=== PATIENT | female | born 1965 | race Caucasian/White ===

== ENCOUNTER → 2016-09-28 | Outpatient (REF) | payer BC, OTHER | LOC: M LAB REF 12:54 | PROVIDERS: ATTEND Nurse Practitioner Adult Health | DX: D64.9 Anemia, unspecified (principal) ==

== ENCOUNTER → 2016-10-20 | Outpatient (REF) | payer BC, OTHER | LOC: M LAB REF 13:25 | PROVIDERS: ATTEND Physician Assistant | DX: R30.0 Dysuria (principal) ==

== ENCOUNTER → 2016-11-02 | Outpatient (REF) | payer BC | LOC: M LAB REF 17:17 | PROVIDERS: ATTEND Specialist | DX: R30.0 Dysuria (principal) ==

== ENCOUNTER 2016-12-20 09:51 | Day surgery (SDC) | payer BC ==
[~2016-12-20] VITALS: Ht 162.6 cm; Wt 72.6 kg
[~2016-12-20 09:51] MED LIST: ACYC200C8 PO; CITA20TA4 PO; FLUTISP; IRON65TA PO; L-LY500C2 PO; MULT1TAB10 PO; NAPR500T3 PO; VITA-115 PO; VITA100T20 PO
[2016-12-20] MEDS ORDERED: LR 1,000 ML IV ONE (10:15)
[2016-12-20] MEDS ORDERED: ceFAZolin SOD 1 GM in D5W MINI-BAG PLUS 50 ML IV ONE (10:15)
[2016-12-20] MEDS ORDERED: TYLE325C PO (10:27)
[2016-12-20] MEDS ORDERED: MIDAZOLAM INJ 2 MG/2 ML VIAL (J2250) As Ordered ONE (11:01)
[2016-12-20] MEDS ORDERED: ONDANSETRON 4MG/2ML VIAL (J2405) As Ordered ONE (11:02)
[2016-12-20] MEDS ORDERED: LIDOCAINE 2% INJ 100 MG/5 ML SDV (FOR ANES.) As Ordered ONE (11:02)
[2016-12-20] MEDS ORDERED: PROPOFOL 200 MG/20 ML VIAL As Ordered ONE (11:02)
[2016-12-20] MEDS ORDERED: fentaNYL 100 MCG/2 ML INJECTION (J3010) As Ordered ONE (11:02)
[2016-12-20] MEDS ORDERED: dexameTHASONE 4 MG/ML 1ML VIAL (J1100) As Ordered ONE (11:02)
[2016-12-20] MEDS ORDERED: KETOROLAC 60 MG/2 ML VIAL (J1885) As Ordered ONE (11:42)
[2016-12-20] MEDS ORDERED: HYDROmorphone HCL 1 MG/ML SYRINGE (J1170) IV PRN (12:30)
[2016-12-20] MEDS ORDERED: METOCLOPRAMIDE INJ 10MG/2ML VIAL (J2765) IV PRN (12:30)
[2016-12-20] MEDS ORDERED: ONDANSETRON 4MG/2ML VIAL (J2405) IV PRN (12:30)
[2016-12-20] MEDS ORDERED: fentaNYL 100 MCG/2 ML INJECTION (J3010) IV PRN (12:30)
[2016-12-20] MEDS ORDERED: LR 1,000 ML IV SCH ×2 (12:30)
[2016-12-20] MEDS ORDERED: PERCOCET 5MG/325MG TAB PO PRN ×3 (12:30)
[2016-12-20 15:00] VITALS: BP 125/79
--- NOTE | 2016-12-21 07:28 | RO ---
DATE OF PROCEDURE: 12/20/2016 PREPROCEDURE DIAGNOSES: Menorrhagia, vulvar lesions. POSTPROCEDURE DIAGNOSES: Menorrhagia, vulvar lesions. PROCEDURE: Hysteroscopy, D and C, NovaSure endometrial ablation. Excision of vulvar lesions. SURGEON: Dr. Michelet Franklin. VICE CHAIRMAN: ANESTHESIA: General endotracheal. ESTIMATED BLOOD LOSS: Minimal. FINDINGS: Normal uterus, normal appearing endometrial cavity with normal tubal ostia bilaterally. Multiple small firm nodular lesions on the labia majora consistent with possible molluscum contagiosum. OPERATIVE SUMMARY: The patient was taken to the operating room where general endotracheal anesthesia was induced. She was prepped and draped in a sterile fashion in dorsal lithotomy position. Bladder was emptied with a catheter. 200 mL of urine was obtained. Speculum was placed. The anterior lip of the cervix was grasped with a tenaculum. An endocervical polyp was removed by grasping it with polyp forceps and twisting it off at its base. Cervix was dilated with tapered dilators. Diagnostic hysteroscope using normal saline was extended medially and placed through the internal os. Visualization of the endometrial cavity revealed the findings noted above. Sharp curettage was performed. NovaSure device was assembled. The device was inserted through the internal os. Endometrial cavity length was 4 cm. Cavity width was calculated at 4.6 cm. Total power setting was 101 hurst. Successful cavity assessment was performed. Coagulation was initiated. Total coagulation time was 120 seconds. NovaSure device was removed. Hysteroscopy was performed. Excellent coagulation affect was noted throughout the endometrium with sparing of the cervix. Hysteroscope was removed. Speculum was removed. Multiple nodular lesions of the vulva were identified. Small pickups with tissue forceps was used to grasp. The lesions were excised with a scalpel. A total of eight lesions were excised bilaterally. The lesions were sent to pathology. There were no further lesions identified that were amenable to being removed. Sponge and instrument counts were correct. The patient went to the recovery room in stable condition.
== END 2016-12-20 15:15 | disposition home or self-care (01) ==
LOC: M SDC 09:51
PROVIDERS: ATTEND Specialist
DX: N92.0 Excessive and frequent menstruation with regular cycle (principal); N90.7 Vulvar cyst; N84.0 Polyp of corpus uteri; Z88.2 Allergy status to sulfonamides; Z79.899 Other long term (current) drug therapy; D64.9 Anemia, unspecified; Z87.891 Personal history of nicotine dependence; F41.9 Anxiety disorder, unspecified
CPT/HCPCS: 11420; 36415; 58563; 85014; 85018; 88304; 88305; A4649; J0690; J1100; J1885; J2250; J2405; J3010

== ENCOUNTER → 2017-11-15 | Outpatient (REF) | payer BC ==
[2017-11-15 12:31] LABS: IRON (FE) 85 UG/DL (50-170)
== END ==
LOC: M LAB REF 12:05
DX: D64.9 Anemia, unspecified (principal)
CPT/HCPCS: 83540

== ENCOUNTER → 2018-07-01 | Outpatient (REF) | payer BC ==
[~2018-07-01] MED LIST changes: +NAPR-885 PO; -NAPR500T3 PO; +TYLE325C PO
== END ==
LOC: M LAB REF 09:56
PROVIDERS: ATTEND Physician Assistant
DX: N39.0 Urinary tract infection, site not specified (principal)

== ENCOUNTER → 2019-01-08 | Outpatient (REF) | payer BC ==
[~2019-01-08] MED LIST changes: -CITA20TA4 PO; +CITA20TA6 PO; -VITA100T20 PO; +VITA100T51 PO
== END ==
LOC: M LAB REF 12:54
PROVIDERS: ATTEND Physician Assistant
DX: R30.0 Dysuria (principal)

== ENCOUNTER → 2019-06-11 | Outpatient (REF) | payer BC | LOC: M LAB REF 12:00 | PROVIDERS: ATTEND Physician Assistant | DX: R30.0 Dysuria (principal) ==

== ENCOUNTER → 2020-02-01 | Outpatient (REF) | payer BC ==
[2020-02-01 17:40] LABS: FOLATE 9.1 NG/ML; VITAMIN B12 LEVEL > 2000 PG/ML
== END ==
LOC: M LAB REF 16:27
PROVIDERS: ATTEND Registered Nurse
DX: R53.83 Other fatigue (principal)

== ENCOUNTER → 2020-11-14 | Outpatient (CLI) | payer BC ==
[~2020-11-14] MED LIST changes: +BUSP10TA PO; +CLAR10CA3 PO; +L-LY500T14 PO; +MULT-90 PO; +OXYC1TAB23 PO; +PROG1CAP8
== END ==
LOC: M LABSMTC 10:30
PROVIDERS: ATTEND Anesthesiology
DX: Z01.812 Encounter for preprocedural laboratory examination (principal)

== ENCOUNTER 2020-11-19 06:10 | Day surgery (SDC) | payer BC ==
[~2020-11-19] VITALS: Ht 162.6 cm; Wt 79.3 kg
[~2020-11-19 06:10] MED LIST changes: +LR 1,000 ML IV ONE; -OXYC1TAB23 PO; +ceFAZolin SOD 2 GM in IV 1 EA IV ONE
[2020-11-19 06:50] LABS: HEMATOCRIT 45.5 % (36.0-47.0); HEMOGLOBIN 14.9 g/dl (12.0-15.5); MEAN CORPUSCULAR HGB CONC 32.7 g/dl (32.0-36.5); MEAN CORPUSCULAR VOLUME 100.7 fl (80.0-96.0); PLATELET COUNT, AUTOMATED 287 10^3/uL (150-450); RED BLOOD COUNT 4.52 10^6/uL (4.00-5.40); WHITE BLOOD COUNT 4.9 10^3/uL (4.0-10.0)
[2020-11-19 07:11] LABS: BLOOD UREA NITROGEN 5 MG/DL (7-18); CALCIUM LEVEL 8.4 MG/DL (8.5-10.1); CARBON DIOXIDE LEVEL 26 MEQ/L (21-32); CHLORIDE LEVEL 110 MEQ/L (98-107); CREATININE FOR GFR 0.66 MG/DL (0.55-1.30); GLOMERULAR FILTRATION RATE > 60.0 (>51); GLUCOSE, FASTING 85 MG/DL (70-100); SODIUM LEVEL 142 MEQ/L (136-145)
[2020-11-19] MEDS ORDERED: LIDOCAINE 2% 100MG/5ML SDV (FOR ANES.) As Ordered ONE (07:18)
[2020-11-19] MEDS ORDERED: ROCURONIUM BROMIDE 50 MG/5 ML VIAL As Ordered ONE ×2 (07:18→09:28)
[2020-11-19] MEDS ORDERED: dexameTHASONE 4 MG/ML 1ML VIAL (J1100 PER 1MG) As Ordered ONE (07:18)
[2020-11-19] MEDS ORDERED: propofoL 200 MG/20 ML VIAL As Ordered ONE (07:18)
[2020-11-19] MEDS ORDERED: ONDANSETRON 4MG/2ML VIAL As Ordered ONE (07:18)
[2020-11-19] MEDS ORDERED: MIDAZOLAM INJ 2MG/2ML VIAL (J2250 PER 1MG) As Ordered ONE (07:20)
[2020-11-19] MEDS ORDERED: fentaNYL 250 MCG/5 ML INJECTION (J3010) As Ordered ONE (07:20)
[2020-11-19] MEDS ORDERED: LACRILUBE (AKWA TEARS) OPHTH OINT 3.5 GM As Ordered ONE (07:36)
[2020-11-19] MEDS ORDERED: FLUORESCEIN 10% (100MG/ML) 5 ML VIAL As Ordered ONE (08:30)
[2020-11-19] MEDS ORDERED: BUPIVACAINE/EPIN 0.25% 30 ML VIAL As Ordered ONE (08:30)
--- NOTE | 2020-11-19 08:36 | ECGEPIP ---
[facility] Test Date: 2020-11-19 Pat Name: AIDEN GARCIA Department: Room: - Gender: Female [employer] Supervisor: AMADO : 1965 Requested By: Matty Bernard Order Number: [id number] Reading MD: Germán Felder Measurements Intervals [place] Rate: 67 P: 26 MT: 178 QRS: 22 QRSD: 112 T: 28 QT: 410 QTc: 433 Interpretive Statements Normal sinus rhythm Incomplete right bundle branch block Delayed anterior R wave progression Nonspecific ST-T wave abnormalities Comparison tracing not on file Electronically Signed on 11-19-2020 8:35:40 EDT by Germán Felder
[2020-11-19] MEDS ORDERED: KETAMINE HCL 200 MG/20 ML VIAL As Ordered ONE (09:05)
[2020-11-19] MEDS ORDERED: ACETAMINOPHEN 1000MG 100ML IV BTL (OFIRMEV) (J0131 PER 10MG) As Ordered ONE (09:07)
[2020-11-19] MEDS ORDERED: SUGAMMADEX SODIUM 500 MG/5 ML VIAL (BRIDION) As Ordered ONE (09:15)
[2020-11-19] MEDS ORDERED: KETOROLAC 60MG 2ML VIAL As Ordered ONE (09:15)
[2020-11-19] MEDS ORDERED: GLYCOPYRROLATE INJ 0.2 MG/ML 2 ML VIAL As Ordered ONE (09:20)
[2020-11-19] MEDS ORDERED: ePHEDrine SULFATE 25 MG/5 ML(5MG/ML) SYRINGE As Ordered ONE (09:21)
[2020-11-19] MEDS ORDERED: DESFLURANE 240 ML INHALANT As Ordered ONE (09:51)
[2020-11-19] MEDS ORDERED: LIDOCAINE W/EPINEPHRINE 1% 20ML VIAL As Ordered ONE (10:00)
[2020-11-19] MEDS ORDERED: OXYC1TAB23 PO (10:41)
[2020-11-19] MEDS ORDERED: HYDROMORPHONE HCL 0.5 MG/ 0.5 ML SYRINGE (J1170 PER 1) IV PRN (11:00)
[2020-11-19] MEDS ORDERED: LR 1,000 ML IV SCH (11:00)
[2020-11-19] MEDS ORDERED: fentaNYL 100 MCG/2 ML INJECTION (J3010) IV PRN (11:00)
[2020-11-19] MEDS ORDERED: oxyCODONE 5MG TAB PO PRN (11:00)
[2020-11-19] MEDS ORDERED: ONDANSETRON 4MG/2ML VIAL IV PRN (11:00)
[2020-11-19 12:02] VITALS: BP 113/77
--- NOTE | 2020-11-19 12:30 | RO ---
OPERATIVE NOTE DATE OF OPERATION: 11/19/2020 INDICATIONS FOR PROCEDURE: Chrystal is a 55-year-old female with postmenopausal bleeding, enlarged uterus, and a gaping introitus on exam. After extensive counseling, the decision was made to proceed with a robotic-assisted total hysterectomy, bilateral salpingo-oophorectomy, cystoscopy, vaginal repair, and perineorrhaphy. PREOPERATIVE DIAGNOSES: 1. Postmenopausal bleeding. 2. Enlarged uterus. 3. Gaping introitus. POSTOPERATIVE DIAGNOSES: 1. Postmenopausal bleeding. 2. Enlarged uterus. 3. Gaping introitus. PROCEDURES: 1. Robotic-assisted total hysterectomy. 2. Bilateral salpingo-oophorectomy. 3. Cystoscopy. 4. Vaginal repair. 5. Perineorrhaphy. SURGEON: Samuel Arauz D.O. VEHICLE CONTROLS ENGINEER: None. ANESTHESIA: General. COMPLICATIONS: None. ESTIMATED BLOOD LOSS: Less than 50 mL. SPECIMEN(S) SENT TO LAB: Uterus, tube, and ovaries, as well as posterior vaginal mucosa. FINDINGS: Enlarged uterus with enlarged ovaries. On cystoscopy bilateral ureteral jets noted. No evidence of any bladder injury. DESCRIPTION OF PROCEDURE: After obtaining informed consent, the patient was taken to the operating room where general anesthetic was found to be adequate. She was then draped and prepped in the usual sterile fashion in the dorsolithotomy position. At this point, a straight catheter bladder was performed and then, HUMI II uterine manipulator was placed. We then turned our attention to the abdomen where at the umbilicus, the Veress needle was inserted. The abdomen was insufflated with CO2 gas with approximately 3.5 liters. I then placed an 8 mm supraumbilical incision and under direct visualization, the 8 mm trocar was inserted for robotic camera port. We then placed two left 8 mm lateral ports for robotic arm one in the assist port and on the right, 8 mm port placed for robotic arm two. The robot was brought up to the patient's right side and the camera port was docked in a similar fashion. After appropriate targeting, the remaining arm one and two were then docked. At this point, a Vessel Sealer was placed on arm one and bipolar grasper on arm two. I then unscrubbed and went to the surgeon consult to begin the surgery. At this point with the patient in steep Trendelenburg and the robotic arms properly docked, I identified the infundibulopelvic ligament on each side using the Vessel Sealer. The infundibulopelvic ligament was cauterized and cut. This was taken down all the way down to the uterine arteries, as well as ureterosacral ligament. The opposite side was done in a similar fashion. The anterior leaflet of the broad ligament was dissected to create a bladder flap. The bladder was pushed out of the operative field and after pushing down the bladder off the operative field, the Vessel Sealer was removed and Endo Shear was inserted. Anterior and posterior colpotomy was performed. The uterus, as well as bilateral fallopian tubes, and ovaries were removed through the vagina. The pelvis was then copiously irrigated with normal saline and suctioned out. The Endo Shear was removed, a needle bull driver was inserted, as well as a V-Loc suture and the vaginal cuff was closed using a 2-0 V-Loc suture in a running fashion. The peritoneum over the vaginal cuff was also closed using the 2-0 V-Loc suture. One mL of fluorescein was given by the anesthesiologist to assist in the cystoscopy. I then rescrubbed, retrograde filled the bladder with 230 mL of normal saline. The Ta catheter was removed and the cystoscopy was then performed. Bilateral ureteral jets were noted. No evidence of any bladder injury noted. At this point, the cystoscope was removed and the Ta catheter replaced. I then turned my attention to the vagina where the gaping vagina was identified. Posteriorly there was a mild rectocele. At this point using three Allis clamps in a triangular fashion, the extra skin over the perineal body was removed. The posterior vaginal mucosa was dissected and the vagina mucosa was pealed off the rectal mucosa. Excess tissues were removed and using 2-0 Vicryl in a running fashion, the posterior vaginal mucosa was then imbricated and closed. A 0-Vicryl was used at the perineal body to recreate the perineal body. At this point, the vaginal mucosa, as well as the skin was closed using the 2-0 Vicryl suture. The skin was closed in a subcuticular fashion. Good hemostasis noted. We then turned our attention to the abdomen where all the instruments were removed and the robotic ports were then closed using 3-0 Vicryl in a subcuticular fashion. A 0.25% Marcaine placed for postoperative pain. The patient tolerated the procedure well. She was then transferred to the recovery room in table condition.
[2020-11-19 12:40] VITALS: BP 111/79
[2020-11-19] MEDS: SIMETHICONE 80MG CHEW TAB PO SCH ×3 (12:59→23:32)
[2020-11-19] MEDS: LR 1,000 ML IV SCH ×2 (12:59→19:00)
[2020-11-19 13:40] VITALS: BP 126/75
[2020-11-19] MEDS: PERCOCET 5MG/325MG TAB PO PRN ×2 (14:13→20:34)
[2020-11-19 14:40] VITALS: BP 123/78
[2020-11-19 15:40] VITALS: BP 121/81
[2020-11-19] MEDS: IBUPROFEN 800 MG TAB PO SCH ×2 (18:45→23:32)
[2020-11-19 19:15] VITALS: BP 119/80
[2020-11-20 02:00] VITALS: BP 104/64
[2020-11-20] MEDS: LR 1,000 ML IV SCH (02:21)
[2020-11-20] MEDS: IBUPROFEN 800 MG TAB PO SCH ×2 (05:25→12:14)
[2020-11-20] MEDS: SIMETHICONE 80MG CHEW TAB PO SCH ×2 (05:25→12:14)
[2020-11-20 06:00] VITALS: BP 107/63
[2020-11-20] MEDS: PERCOCET 5MG/325MG TAB PO PRN (09:09)
[2020-11-20 10:00] VITALS: BP 128/71
== END 2020-11-20 13:01 | disposition home or self-care (01) ==
LOC: M SDC 06:10 → M MSPAV 12:02 → M SDC 11-20 13:01
PROVIDERS: ATTEND Obstetrics & Gynecology
DX: N80.0 Endometriosis of uterus (principal); N83.00 Follicular cyst of ovary, unspecified side; N95.0 Postmenopausal bleeding; N81.89 Other female genital prolapse; A60.09 Herpesviral infection of other urogenital tract; N39.3 Stress incontinence (female) (male); K21.9 Gastro-esophageal reflux disease without esophagitis; K90.0 Celiac disease; M19.90 Unspecified osteoarthritis, unspecified site; F41.9 Anxiety disorder, unspecified; Z88.2 Allergy status to sulfonamides; Z91.048 Other nonmedicinal substance allergy status; Z79.899 Other long term (current) drug therapy; Z79.1 Long term (current) use of non-steroidal anti-inflammatories (NSAID); Z79.890 Hormone replacement therapy; Z87.891 Personal history of nicotine dependence
CPT/HCPCS: 36415; 57260; 57282; 58571; 80048; 85027; 86850; 86900; 86901; 88302; 88307; 93005; 96360; 96361; J0131; J0690; J1100; J1885; J2250; J2405; J3010; S2900

== ENCOUNTER → 2020-12-11 | Outpatient (REF) | payer BC ==
[~2020-12-11] MED LIST changes: -LR 1,000 ML IV ONE; +OXYC1TAB23 PO; -ceFAZolin SOD 2 GM in IV 1 EA IV ONE
== END ==
LOC: M LAB REF 16:29
PROVIDERS: ATTEND Obstetrics & Gynecology
DX: R31.9 Hematuria, unspecified (principal)

== ENCOUNTER → 2021-04-17 | Outpatient (CLI) | payer BC ==
[2021-04-17 13:25] LABS: ESTRADIOL 38.7 PG/ML; FOLLICLE STIMULATING HORMONE 54.4 mIU/mL; LUTEINIZING HORMONE 45.6 mIU/mL; PROGESTERONE 0.21 NG/ML
[2021-04-18 21:07] LABS: TESTOSTERONE FREE (DIRECT) 3.5 pg/mL (0.0-4.2)
== END ==
LOC: M WUC 10:23
PROVIDERS: ATTEND Obstetrics & Gynecology
DX: N95.1 Menopausal and female climacteric states (principal); E34.9 Endocrine disorder, unspecified; F52.0 Hypoactive sexual desire disorder

== ENCOUNTER → 2021-06-22 | Outpatient (REF) | payer BC | LOC: M LAB REF 15:53 | PROVIDERS: ATTEND Physician Assistant | DX: R35.0 Frequency of micturition (principal) ==

== ENCOUNTER → 2022-09-01 | Outpatient (CLI) | payer BC ==
[~2022-09-01] MED LIST changes: +FLUT50SP17; -FLUTISP; +GASTROGRAFIN SOLUTION 30ML As Ordered ONE; +ISOVUE-370 76% 100ML VIAL As Ordered ONE
== END ==
LOC: M RAD 07:00
PROVIDERS: ATTEND Nurse Practitioner Adult Health
DX: R10.9 Unspecified abdominal pain (principal); R59.9 Enlarged lymph nodes, unspecified
CPT/HCPCS: 74178; Q9963; Q9967

== ENCOUNTER → 2022-09-20 | Outpatient (REF) | payer BC ==
[~2022-09-20] MED LIST changes: -GASTROGRAFIN SOLUTION 30ML As Ordered ONE; -ISOVUE-370 76% 100ML VIAL As Ordered ONE
== END ==
LOC: M LAB REF 09:48
PROVIDERS: ATTEND Student in an Organized Health Care Education/Training Program
DX: R30.0 Dysuria (principal)

== ENCOUNTER → 2022-10-21 | Outpatient (CLI) | payer BC | LOC: M WUC 13:44 | PROVIDERS: ATTEND Nurse Practitioner Family | DX: M25.562 Pain in left knee (principal) ==

== ENCOUNTER 2023-03-11 07:29 | Day surgery (SDC) | payer BC ==
[~2023-03-11] VITALS: Ht 162.6 cm; Wt 85.3 kg
[~2023-03-11 07:29] MED LIST changes: +CYAN500T14 PO; +META28.32 PO; +VITA-243 PO
[2023-03-11] MEDS ORDERED: NIAC500T29 PO (07:51)
[2023-03-11] MEDS ORDERED: BACITRACIN OINTMENT 30GM TUBE As Ordered ONE (07:55)
[2023-03-11] MEDS ORDERED: LIDOCAINE 1% MDV 20ML VIAL SC ONE (08:05)
[2023-03-11] MEDS ORDERED: LIDOCAINE 1% MDV 20ML VIAL XX ONE (08:20)
[2023-03-11] MEDS ORDERED: ceFAZolin SOD 2 GM in IV 1 EA IV ONE (09:00)
[2023-03-11] MEDS ORDERED: LIDOCAINE W/EPINEPHRINE 1% 20ML VIAL XX ONE (09:00)
[2023-03-11] MEDS ORDERED: SODIUM BICARBONATE 8.4% INJ 50MEQ 50ML VIAL XX ONE (09:00)
[2023-03-11 12:17] VITALS: BP 145/85; TEMP 96.7; O2SAT 99
[2023-03-11] MEDS ORDERED: PERCOCET PO (12:21)
== END 2023-03-11 12:41 | disposition home or self-care (01) ==
LOC: M SDC 07:29
PROVIDERS: ATTEND Orthopaedic Surgery Hand Surgery
DX: M25.841 Other specified joint disorders, right hand (principal); M19.041 Primary osteoarthritis, right hand; M25.741 Osteophyte, right hand; B00.9 Herpesviral infection, unspecified; Z79.899 Other long term (current) drug therapy; Z88.2 Allergy status to sulfonamides; Z88.1 Allergy status to other antibiotic agents
CPT/HCPCS: 26160; 76000; 88304; J0665

== ENCOUNTER → 2023-03-21 | Outpatient (CLI) | payer BC ==
[~2023-03-21] MED LIST changes: +NIAC500T29 PO; +PERCOCET PO
== END ==
LOC: M SOG 14:05
PROVIDERS: ATTEND Physician Assistant
DX: M19.041 Primary osteoarthritis, right hand (principal)

== ENCOUNTER → 2024-03-14 | Outpatient (CLI) | payer BC ==
[~2024-03-14] MED LIST changes: -FLUT50SP17; +FLUTISP
== END ==
LOC: M WUC 09:58
PROVIDERS: ATTEND Student in an Organized Health Care Education/Training Program
DX: M25.561 Pain in right knee (principal); M25.562 Pain in left knee

== ENCOUNTER → 2024-09-18 | Outpatient (CLI) | payer OTHER | LOC: M RAD 08:38 | PROVIDERS: ATTEND Nurse Practitioner Family | DX: M79.605 Pain in left leg (principal) ==

== ENCOUNTER 2025-03-27 12:47 | Day surgery (SDC) | payer BC ==
[~2025-03-27] VITALS: Ht 162.6 cm; Wt 85.7 kg
[~2025-03-27 12:47] MED LIST changes: +ACET500T15 PO; +ACYC200C10 PO; -ACYC200C8 PO; +ESTR1TAB PO; +LIDOCAINE 2% 100 MG/5 ML SDV (FOR ANES.) As Ordered ONE; +MAGN100T PO; +OMEP1CAP73 PO; +QC F0.52 PO
[2025-03-27 15:43] VITALS: TEMP 98
[2025-03-27 15:58] VITALS: BP 117/70; O2SAT 100
== END 2025-03-27 16:14 | disposition home or self-care (01) ==
LOC: M OPP 12:47
PROVIDERS: ATTEND Internal Medicine Gastroenterology
DX: Z12.11 Encounter for screening for malignant neoplasm of colon (principal); D12.0 Benign neoplasm of cecum; K64.0 First degree hemorrhoids; K44.9 Diaphragmatic hernia without obstruction or gangrene; K31.89 Other diseases of stomach and duodenum; R12 Heartburn; K90.0 Celiac disease; Z88.1 Allergy status to other antibiotic agents; Z88.2 Allergy status to sulfonamides; Z91.048 Other nonmedicinal substance allergy status; Z79.899 Other long term (current) drug therapy; Z87.891 Personal history of nicotine dependence